=== PATIENT | female | born 1970 | race Caucasian/White ===

== ENCOUNTER 2018-04-21 11:36 | Emergency (ER) | payer OTHER ==
[~2018-04-21] VITALS: Ht 175.3 cm; Wt 70.3 kg
[2018-04-21 12:40] LABS: BILIRUBIN,URINE SMALL (NEG); CLARITY,URINE CLEAR; COLOR,URINE AMBER; NITRITE,URINE NEGATIVE (NEG); PROTEIN,URINE 30 mg/dL (NEG-TRACE); UROBILINOGEN,URINE 0.2 mg/dL (0.2 mg/dL)
[2018-04-21 12:51] LABS: BACTERIA,URINE FEW /HPF (0-FEW); RBC,URINE 0 /HPF (0-2); SQUAMOUS EPITHELIAL CELL,UR MOD /LPF
[2018-04-21] MEDS: IV NORMAL SALINE 1000ML BAG 1,000 ML IV ONE ×2 (13:17→15:18)
[2018-04-21] MEDS: ONDANSETRON PF 4 MG/2 ML VIAL. IV ONE (13:17)
[2018-04-21 13:18] LABS: BASO # 0.1 x10^3/uL (0.0-0.2); BASO % 1 % (0-3); EOS # 0.2 x10^3/uL (0.0-0.7); EOS % 3 % (0-3); HEMATOCRIT 36.3 % (36.0-47.0); HEMOGLOBIN 12.3 g/dL (12.0-15.5); LYMPH # 1.4 x10^3/uL (1.0-4.8); LYMPH % 23 % (24-48); MEAN CORPUSCULAR HEMOGLOBIN 28 pg (25-35); MEAN CORPUSCULAR HGB CONC 34 g/dL (31-37); MEAN CORPUSCULAR VOLUME 82 fL (79-100); MONO # 0.8 x10^3/uL (0.0-1.1); MONO % 12 % (0-9); NEUT # 3.8 x10^3uL (1.8-7.7); NEUT % 61 % (31-73); PLATELET COUNT 245 x10^3/uL (140-400); RED BLOOD COUNT 4.46 x10^6/uL (3.50-5.40); RED CELL DISTRIBUTION WIDTH 16.4 % (11.5-14.5); WHITE BLOOD COUNT 6.2 x10^3/uL (4.0-11.0)
[2018-04-21 13:31] LABS: CALCIUM 9.1 mg/dL (8.5-10.1); GFR 59.7; POTASSIUM 3.6 mmol/L (3.5-5.1)
[2018-04-21 13:37] LABS: ALBUMIN 4.1 g/dL (3.4-5.0); TOTAL BILIRUBIN 0.4 mg/dL (0.2-1.0); TOTAL PROTEIN 8.1 g/dL (6.4-8.2)
[2018-04-21] MEDS: LIDO:MAALOX 1:1 20 ML SINGLE DOSE. PO ONE (14:02)
[2018-04-21 14:33] LABS: PLT ESTIMATE ADEQUATE (ADEQUATE); POIKILOCYTOSIS SLIGHT
[2018-04-21 14:34] LABS: ANISOCYTOSIS SLIGHT; OVALOCYTES FEW; SCHISTOCYTES FEW
[2018-04-21 15:49] VITALS: BP 120/79
--- NOTE | 2018-04-21 16:21 | PHYS DOC ---
Past Medical History Past Medical History: Depression, Hypertension, Other Additional Past Medical Histor: CHRONIC HIP PAIN(TUMOR),TUMOR STERNUM,RENAL INSUFFICIENCY Past Surgical History: , Other Additional Past Surgical Histo: GASTRIC BAND,BREAST IMPLANTS,LAPAROSCOPIC, ECTOPIC PREG Alcohol Use: Rarely Drug Use: None Adult General Chief Complaint Chief Complaint: NAUSEA/VOMITING/DIARRHA HPI HPI Patient is a 47 year old female who presents to the emergency Department today with complaints of feeling dehydrated. Patient states that she has been experiencing nausea, vomiting, and loose stools for the last 2 weeks. She reports having 1 loose stool a day. 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 She states that her lab work showed that she had anemia and renal insufficiency. Patient reports that [address] scans of her abdomen were negative for any acute findings however she has previously been diagnosed with hepatomegaly and splenomegaly as well as uterine fibroids. She states she is on her way back home to [place] to have a further workup of the palpable mass in the right upper quadrant. Patient states she does not want further workup of the mass in her abdomen today. She only wants to make sure that her labs are okay and she is not too dehydrated to be driving home. Patient states due to nausea she's not been eating or drinking very much and she has not had an appetite. She states that she feels dizzy with position changes and has had decreased urination recently. Currently she reports her pain is a 4 out of 10 on the pain scale, she denies any need for pain medication. Patient denies any fever, syncope, chest pain, abdominal pain, or shortness of breath. Review of Systems Review of Systems Constitutional: Denies fever or chills [] HENT: Denies nasal congestion or sore throat, reports dry mouth and salivation with nausea[] Respiratory: Denies cough or shortness of breath [] Cardiovascular: Denies chest pain GI: Denies bloody stools, Reports RUQ abdominal pain with palpable mass for several weeks. reports nausea, vomiting, and loose stools x1/day for the last 2 weeks. : Denies dysuria or hematuria [] Musculoskeletal: Denies back pain or joint pain [] Integument: Denies rash or skin lesions [] Neurologic: Denies headache, focal weakness or sensory changes; reports dizziness with position changes. [] All other systems were reviewed and found to be within normal limits, except as documented in this note. Current Medications Current Medications Current Medications Medications (Trade) Dose Ordered Sig/Carlos Start Time Stop Time Status Last Admin Dose Admin Multi-Ingredient Mouthwash/Gargle (Gi Cocktail) 20 ml 1X ONCE 04/21/18 14:00 04/21/18 14:01 DC 04/21/18 14:02 20 ML Ondansetron HCl (Zofran) 4 mg 1X ONCE 04/21/18 13:00 04/21/18 13:01 DC 04/21/18 13:17 4 MG Sodium Chloride 1,000 ml @ 1,000 mls/hr 1X ONCE 04/21/18 15:30 04/21/18 16:29 DC 04/21/18 15:18 1,000 MLS/HR Allergies Allergies Allergies Coded Allergies Type Severity Reaction Last Updated Verified No Known Drug Allergies 04/21/18 No Physical Exam Physical Exam Constitutional: Well developed, well nourished, no acute distress, non-toxic appearance. [] HENT: Normocephalic, atraumatic, bilateral external ears normal, dry mucous membranes, patient's lips noted to be trying cracked, no oral exudates, nose normal. [] Eyes: PERRLA, conjunctiva normal, no discharge. [] Neck: Normal range of motion, no stridor. [] Cardiovascular:Heart rate regular rhythm, no murmur [] Lungs & Thorax: Bilateral breath sounds clear to auscultation [] Abdomen: Bowel sounds normal, soft, no pulsatile masses; RUQ tenderness, with a soft movable palpable mass in the right upper quadrant when patient bears down, . [] Skin: Warm, dry, no erythema, no rash, normal turgor. [] Extremities: No tenderness, no cyanosis, no edema. [] Neurologic: Alert and oriented X 3, normal motor function, normal sensory function, no focal deficits noted. [] Psychologic: Affect normal, judgement normal, mood normal. [] Current Patient Data Vital Signs Vital Signs Date Time Temp Pulse Resp B/P (MAP) Pulse Ox O2 Delivery O2 Flow Rate FiO2 04/21/18 15:49 62 120/79 (93) 99 Room Air 04/21/18 11:42 98.2 16 98.2 Lab Values Laboratory Tests Test 04/21/18 11:47 04/21/18 13:10 Urine Collection Type Unknown Urine Color Peggy Urine Clarity Clear Urine pH 6.0 Urine Specific [place] 1.025 Urine Protein 30 mg/dL (NEG-TRACE) Urine Glucose (UA) Negative mg/dL (NEG) Urine Ketones (Stick) Trace mg/dL (NEG) Urine Blood Negative (NEG) Urine Nitrite Negative (NEG) Urine Bilirubin Small (NEG) Urine Urobilinogen Dipstick 0.2 mg/dL (0.2 mg/dL) Urine Leukocyte Esterase Trace (NEG) Urine RBC 0 /HPF (0-2) Urine WBC 1-4 /HPF (0-4) Urine Squamous Epithelial Cells Mod /LPF Urine Bacteria Few /HPF (0-FEW) Urine Mucus Marked /LPF White Blood Count 6.2 x10^3/uL (4.0-11.0) Red Blood Count 4.46 x10^6/uL (3.50-5.40) Hemoglobin 12.3 g/dL (12.0-15.5) Hematocrit 36.3 % (36.0-47.0) Mean Corpuscular Volume 82 fL (79-100) Mean Corpuscular Hemoglobin 28 pg (25-35) Mean Corpuscular Hemoglobin Concent 34 g/dL (31-37) Red Cell Distribution Width 16.4 % (11.5-14.5) H Platelet Count 245 x10^3/uL (140-400) Neutrophils (%) (Auto) 61 % (31-73) Lymphocytes (%) (Auto) 23 % (24-48) L Monocytes (%) (Auto) 12 % (0-9) H Eosinophils (%) (Auto) 3 % (0-3) Basophils (%) (Auto) 1 % (0-3) Neutrophils # (Auto) 3.8 x10^3uL (1.8-7.7) Lymphocytes # (Auto) 1.4 x10^3/uL (1.0-4.8) Monocytes # (Auto) 0.8 x10^3/uL (0.0-1.1) Eosinophils # (Auto) 0.2 x10^3/uL (0.0-0.7) Basophils # (Auto) 0.1 x10^3/uL (0.0-0.2) Platelet Estimate Adequate (ADEQUATE) Poikilocytosis Slight Anisocytosis Slight Ovalocytes Few Schistocytes Few Sodium Level 139 mmol/L (136-145) Potassium Level 3.6 mmol/L (3.5-5.1) Chloride Level 104 mmol/L (98-107) Carbon Dioxide Level 27 mmol/L (21-32) Anion Gap 8 (6-14) Blood Urea Nitrogen 26 mg/dL (7-20) H Creatinine 1.0 mg/dL (0.6-1.0) Estimated GFR (Cockcroft-Gault) 59.7 BUN/Creatinine Ratio 26 (6-20) H Glucose Level 89 mg/dL (70-99) Calcium Level 9.1 mg/dL (8.5-10.1) Total Bilirubin 0.4 mg/dL (0.2-1.0) Aspartate Amino Transferase (AST) 13 U/L (15-37) L Alanine Aminotransferase (ALT) 17 U/L (14-59) Alkaline Phosphatase 51 U/L (46-116) Total Protein 8.1 g/dL (6.4-8.2) Albumin 4.1 g/dL (3.4-5.0) Albumin/Globulin Ratio 1.0 (1.0-1.7) Lipase 82 U/L (73-393) Laboratory Tests 04/21/18 13:10 Laboratory Tests 04/21/18 13:10 EKG EKG [] Radiology/Procedures Radiology/Procedures [] Course & Med Decision Making Course & Med Decision Making Pertinent Labs and Imaging studies reviewed. (See chart for details) Patient is a 47-year-old female who presented to the emergency room with concerns of dehydration. VSS. Labs reveal an elevated BUNs at 26, an elevated BUN/creatinine ratio of 26. CBC was unremarkable, urine was not concerning for urinary tract infection. Patient receives 2 L of normal saline in the emergency department and 4 mg of Zofran. She denied dizziness after the second liter of IV fluids. She states she feels much better and would like to go home.Patient verbalized an understanding of home care, follow-up, and return to ED instructions and was in agreement with the plan of care. [] Dragon Disclaimer Dragon Disclaimer This electronic medical record was generated, in whole or in part, using a voice recognition dictation system. Departure Departure Impression: Primary Impression: Dehydration Additional Impression: Nausea Disposition: 01 HOME, SELF-CARE Condition: STABLE Referrals: NO PCP (PCP) Patient Instructions: Dehydration, Adult, [id number], Nausea and Vomiting, [id number] Additional Instructions: Continue taking your medications that were prescribed for nausea previously. Recommend clear fluids and bland diet such as bananas, rice, applesauce, toast. Follow-up with your primary care doctor in [place] for further evaluation as discussed. Return to the emergency room if your symptoms worsen. Problem Qualifiers GWEN BAIRES [employer] Apr 21, 2018 16:21
== END 2018-04-21 16:36 | disposition home or self-care (01) ==
LOC: ER 11:36
DX: E86.0 Dehydration (principal); R11.2 Nausea with vomiting, unspecified; R19.01 Right upper quadrant abdominal swelling, mass and lump; F32.9 Major depressive disorder, single episode, unspecified; I10 Essential (primary) hypertension; Z98.890 Other specified postprocedural states
CPT/HCPCS: 36415; 80053; 81001; 83690; 85025; 87086; 96361; 96374; 99285; J2405; J7030